=== PATIENT | female | born 1970 | race Caucasian/White ===

== ENCOUNTER → 2017-11-14 | Outpatient (CLI) | payer OTHER ==
--- NOTE | 2017-11-19 12:26 | MAM ---
EXAM DESCRIPTION: 3D Screening BILATERAL : Digital Mammography. CLINICAL HISTORY: 47 years Female SCREENING . No complaints. Sister with breast cancer. Premenopausal. Currently on HRT. COMPARISON: 2-D digital screening bilateral study 08/16/2014. No prior reports available. TECHNIQUE: Bilateral CC and MLO projection full-field images, 3-D tomosynthesis digital mammographic technique. Also bilateral synthesized CC/ MLO full-field images. CAD not utilized. FINDINGS: The breast parenchymal density pattern is: Scattered areas of fibroglandular density. No skin thickening or nipple retraction . Bilateral axillary lymph nodes. Lymph nodes right axillary tail. No focal, stellate mass or density, focal asymmetry , and no suspicious microcalcifications bilaterally. Stable mammograms compared to prior study, taking into account differences in mammographic technique IMPRESSION: BI-RADS CATEGORY: 2 - BENIGN FINDINGS. FOLLOW UP: Routine digital bilateral screening, one year interval from October 2017. Written communication explaining the IMPRESSION and follow-up, will be mailed to the patient and referring health care provider. According to the [employer], yearly mammograms are recommended starting at age 40 and continuing as long as a woman is in good health. Any breast change noted on a breast self-exam should be reported promptly to the patient's healthcare provider. Breast MRI is recommended for women with an approximately 20-25% or greater lifetime risk of breast cancer, including women with a strong family history of breast or ovarian cancer and women who have been treated for Hodgkin's disease. A negative mammographic report should not delay tissue diagnosis in patients with significant clinical history or physical findings. Extremely dense breast tissue limits the sensitivity of digital mammography. Electronically signed by: Reji Ko MD 11/19/2017 12:[address] [facility]
== END ==
LOC: MAMMO 16:38
PROVIDERS: ATTEND Obstetrics & Gynecology
DX: Z12.31 Encounter for screening mammogram for malignant neoplasm of breast (principal)

== ENCOUNTER → 2018-01-01 | Outpatient (CLI) | payer OTHER | END | disposition home or self-care (01) | LOC: LAB.O 14:13 | PROVIDERS: ATTEND Obstetrics & Gynecology | DX: N87.1 Moderate cervical dysplasia (principal) ==

== ENCOUNTER 2018-10-03 16:53 | Emergency (ER) | payer OTHER ==
[2018-10-03] MEDS ORDERED: KETOROLAC TROMETHAMINE INJ 60 MG/2 ML VIAL IM ONE (17:42)
[2018-10-03 17:43] VITALS: TEMP 97.8
[2018-10-03] MEDS ORDERED: ORPHENADRINE CITRATE 30 MG/ML AMP IM ONE (17:43)
[2018-10-03] MEDS ORDERED: traMADol 37.5MG/APAP 325MG 1 EA TAB PO ONE (17:43)
--- NOTE | 2018-10-03 17:48 | ED.PDOC ---
History of Present Illness - General Source: patient Exam Limitations: no limitations - History of Present Illness Initial Comments: PT PRESENTS WITH COMPLAINTS OF LEFT HIP PAIN AND LOW BACK PAIN AFTER SLIPPING AND FALLING DOWN [employer] [facility] 2 DAYS AGO. PT HAS BEEN ABLE TO AMBULATE BUT HAS PAIN IN BACK AND PAIN WHEN SITTING ON L BUTTOCKS. Severity: moderate Improving Factors: immobilization, rest Worsening Factors: movement Associated Symptoms: denies symptoms <Yonatan Ruano - Last Filed: 10/03/18 17:46> <Elisabeth Vargas - Last Filed: 10/03/18 19:22> - General Chief Complaint: Trauma Stated Complaint: fall Time Seen by Provider: 10/03/18 17:37 - History of Present Illness Allergies/Adverse Reactions: Allergies NO KNOWN ALLERGY Allergy (Verified 10/03/18 17:42) Home Medications: Ambulatory Orders Aripiprazole [Abilify] 5 mg PO DAILY 06/09/16 Clonazepam 1 mg PO BEDTIME 06/09/16 Esomeprazole Magnesium [Nexium] 20 mg PO DAILY 06/09/16 Estradiol 0.5 mg PO DAILY 06/09/16 Fluoxetine HCl [Prozac] 40 mg PO DAILY 06/09/16 Metoprolol Succinate [Toprol XL] 50 mg PO DAILY 06/09/16 Rosuvastatin Calcium [Crestor] 10 mg PO DAILY 06/09/16 Zolpidem Tartrate [Ambien] 12.5 mg PO BEDTIME 06/09/16 Ondansetron HCl [Zofran] 4 mg PO Q4HR PRN #14 tab 09/25/16 Acetamin W/Cod #3 Tab [Tylenol w/CODEINE #3] 1 ea PO Q6HR PRN #40 tab 10/03/18 Methocarbamol [Robaxin] 750 mg PO Q8HR #30 tab 10/03/18 Review of Systems - Review of Systems Constitutional: Denies: chills, fever EENTM: Denies: nose congestion, throat pain Respiratory: Denies: cough, short of breath Cardiology: Denies: chest pain, palpitations, syncope Musculoskeletal: States: see HPI, back pain, joint pain, muscle pain Skin: States: change in color, other - BRUISING TO L BUTTOCKS Endocrine: States: no symptoms reported <Yonatan Ruano - Last Filed: 10/03/18 17:46> Past Medical History (General) - Patient Medical History Hx Seizures: No Hx Stroke: No Hx Dementia: No Hx Asthma: No Hx of COPD: No Hx Cardiac Disorders: No - hyperlipidemia Hx Congestive Heart Failure: No Hx Pacemaker: No Hx Hypertension: Yes Hx Thyroid Disease: Yes Hx Diabetes: No Hx Gastroesophageal Reflux: No Hx Renal Disease: No Hx Cancer: No Hx of HIV: No Hx Hepatitis C: No Hx MRSA: No Surgical History: appendectomy, cholecystectomy, Hysterectomy - Vaccination History Hx Tetanus, Diphtheria Vaccination: Yes Hx Influenza Vaccination: Yes Hx Pneumococcal Vaccination: No - Social History Hx Tobacco Use: No Hx Chewing Tobacco Use: No Hx Alcohol Use: No Hx Substance Use: No Hx Substance Use Treatment: No Hx Depression: No Hx Physical Abuse: No Hx Emotional Abuse: No Hx Suspected Abuse: No - Female History Patient : No <Yonatan Ruano Andriy - Last Filed: 10/03/18 17:46> Family Medical History - Family History Mother Family History: No Known <Yonatan Ruano Andriy - Last Filed: 10/03/18 17:46> Physical Exam - Physical Exam General Appearance: Alert, Obese, Well Groomed, Well Hydrated, Other - APPEARS UNCOMFORTABLE Ears, Nose, Throat: hearing grossly normal Neck: non-tender, full range of motion Back Exam: vertebral tenderness - LUMBAR Extremity: swelling, other - EXTENSIVE ECCHYMOSIS AND TTP OF THE L BUTTOCK Neurologic: alert, normal mood/affect, oriented x 3 Skin Exam: normal color, warm/dry <Yonatan Ruano Andriy - Last Filed: 10/03/18 17:46> Progress - Results/Orders Results/Orders: PT WAS EXAMINED X RAYS WERE REVIEWED NO FRACTURE DISLOCATION PT IS AMBULATORY PAIN MUCH DECREASED AFTER THE MEDICATIONS WILL DC HOME TO BE FOLLOWED BY HER PHYSCIAN <Elisabeth Vargas - Last Filed: 10/03/18 19:22> Departure <Yonatan Ruano - Last Filed: 10/03/18 17:46> - Departure Time of Disposition: 19:17 Activity: increase activity as tolerated <Elisabeth Vargas - Last Filed: 10/03/18 19:22> - Departure Clinical Impression: Low back pain Disposition: Discharge to Home or Self Care Condition: Good Departure Forms: ED Discharge - Pt. Copy, Patient Portal Self Enrollment Instructions: DARELL for Trauma Referrals: Jan Miles MD [Primary Care Provider] - 1-2 Weeks Prescriptions: Acetamin W/Cod #3 Tab [Tylenol w/CODEINE #3] 1 ea PO Q6HR PRN #40 tab PRN Reason: Mild To Moderate Pain Methocarbamol [Robaxin] 750 mg PO Q8HR #30 tab Home Medications: Ambulatory Orders Aripiprazole [Abilify] 5 mg PO DAILY 06/09/16 Clonazepam 1 mg PO BEDTIME 06/09/16 Esomeprazole Magnesium [Nexium] 20 mg PO DAILY 06/09/16 Estradiol 0.5 mg PO DAILY 06/09/16 Fluoxetine HCl [Prozac] 40 mg PO DAILY 06/09/16 Metoprolol Succinate [Toprol XL] 50 mg PO DAILY 06/09/16 Rosuvastatin Calcium [Crestor] 10 mg PO DAILY 06/09/16 Zolpidem Tartrate [Ambien] 12.5 mg PO BEDTIME 06/09/16 Ondansetron HCl [Zofran] 4 mg PO Q4HR PRN #14 tab 09/25/16 Acetamin W/Cod #3 Tab [Tylenol w/CODEINE #3] 1 ea PO Q6HR PRN #40 tab 10/03/18 Methocarbamol [Robaxin] 750 mg PO Q8HR #30 tab 10/03/18
--- NOTE | 2018-10-03 19:06 | RAD ---
EXAM DESCRIPTION: Pelvis CLINICAL HISTORY: 47 years Female BACK PAIN L HIP PAIN S/P FALL COMPARISON: None TECHNIQUE: AP view of the pelvis is obtained. FINDINGS: OSSEOUS: There is no evidence of acute fracture or osteolytic/osteoblastic lesions. There is no evidence of subluxation or dislocation. The joint spaces are preserved. There is minimal osteitis pubis. There is no evidence of marginal erosive changes to suggest an inflammatory arthritis. SOFT TISSUE: There is no significant soft tissue swelling or mass. No evidence of significant soft tissue calcifications. Suspect the linear densities in the pelvis may be tiny contiguous postoperative clips. No radiopaque foreign bodies. No evidence of hip joint effusions. IMPRESSION: No acute osseous abnormalities. Remainder of findings as described above. Electronically signed by: Angelina Diaz MD 10/03/2018 7:05 PM [facility]
--- NOTE | 2018-10-03 19:07 | RAD ---
EXAM DESCRIPTION: Lumbar Spine 3 Views CLINICAL HISTORY: 47 years Female LOW BACK PAIN S/P FALL COMPARISON: None TECHNIQUE: AP and lateral views of the lumbar spine as well as a coned down lateral view of the lumbosacral junction are obtained. FINDINGS: OSSEOUS: There are no discernible acute fractures or osteolytic/blastic lesions. There is no evidence of dislocation or subluxation. Vertebral body heights are maintained. Disc spaces are maintained. The alignment is normal The visualized SI joints are preserved and sacral foraminal lines are intact. SOFT TISSUES The paraspinous soft tissues are unremarkable. IMPRESSION: No acute osseous abnormalities. Electronically signed by: Angelina Diaz MD 10/03/2018 7:06 PM [facility]
[2018-10-03 19:30] VITALS: BP 155/94; O2SAT 98
== END 2018-10-03 19:30 | disposition home or self-care (01) ==
LOC: ER 16:53
DX: M54.5 Low back pain (principal); M25.552 Pain in left hip; E07.9 Disorder of thyroid, unspecified; E78.5 Hyperlipidemia, unspecified; I10 Essential (primary) hypertension; Z79.899 Other long term (current) drug therapy
CPT/HCPCS: 72100; 72170; J1885; J2360

== ENCOUNTER 2018-11-14 06:11 | Emergency (ER) | payer OTHER ==
[2018-11-14 06:25] VITALS: TEMP 97.8
[2018-11-14] MEDS ORDERED: HYDROcodone 7.5MG/APAP 325MG 1 EA TAB PO ONE (06:25)
[2018-11-14] MEDS ORDERED: predniSONE 20 MG TAB PO ONE (06:28)
--- NOTE | 2018-11-14 06:41 | ED.PDOC ---
History of Present Illness - General Chief Complaint: Abdominal Pain Stated Complaint: shap pain to left lateral side with cough Time Seen by Provider: 11/14/18 06:13 Source: patient Exam Limitations: no limitations - History of Present Illness Initial Comments: The patient is a 48-year-old female presented to emergency room secondary to new onset left lower thorax pain. The patient has had 3 weeks of cough that is most consistent with bronchitis tracheitis and laryngitis. She underwent a weeklong course of steroids and an extended course of azithromycin. She ended the s teroids about a week ago and the azithromycin yesterday. She has been doing her breathing treatments as instructed and she also takes Zyrtec daily. No fevers. No newly productive sputum. This morning about 3 hours ago she coughed very hard and sustained very severe pain to the left lower thorax laterally. She does have a history of asthma. Pulmonary exam shows splinting towards the left lower lung field. No wheezes. Good air movement. The patient is obviously hoarse. She is coughing at least once a minute. She does have some mild nasal drainage. Posterior oropharynx shows very mild erythema. Timing/Duration: other Severity: moderate Improving Factors: nothing Worsening Factors: movement Associated Symptoms: cough Allergies/Adverse Reactions: Allergies NO KNOWN ALLERGY Allergy (Verified 10/03/18 17:42) Home Medications: Ambulatory Orders Aripiprazole [Abilify] 5 mg PO DAILY 06/09/16 Clonazepam 1 mg PO BEDTIME 06/09/16 Esomeprazole Magnesium [Nexium] 20 mg PO DAILY 06/09/16 Estradiol 0.5 mg PO DAILY 06/09/16 Metoprolol Succinate [Toprol XL] 50 mg PO DAILY 06/09/16 Rosuvastatin Calcium [Crestor] 10 mg PO DAILY 06/09/16 Zolpidem Tartrate [Ambien] 12.5 mg PO BEDTIME 06/09/16 Amoxicillin & Pot Clavulanate [Augmentin Tab] 875 mg PO BID #14 tab 11/14/18 Tramadol HCl 50 mg PO Q8HR PRN #20 tab 11/14/18 predniSONE [Prednisone] 20 mg PO DAILY #5 tab 11/14/18 Review of Systems - Review of Systems Constitutional: States: malaise EENTM: States: nose congestion Respiratory: States: cough Cardiology: States: chest pain - left lateral lower chest wall pain with cough, palpation and movement. No crepitus. Gastrointestinal/Abdominal: States: no symptoms reported Genitourinary: States: no symptoms reported Musculoskeletal: States: see HPI Skin: States: no symptoms reported Neurological: States: no symptoms reported Endocrine: States: no symptoms reported All other Systems: No Change from Baseline Past Medical History (General) - Patient Medical History Hx Seizures: No Hx Stroke: No Hx Dementia: No Hx Asthma: No Hx of COPD: No Hx Cardiac Disorders: No - hyperlipidemia Hx Congestive Heart Failure: No Hx Pacemaker: No Hx Hypertension: Yes Hx Thyroid Disease: Yes Hx Diabetes: No Hx Gastroesophageal Reflux: No Hx Renal Disease: No Hx Cancer: No Hx of HIV: No Hx Hepatitis C: No Hx MRSA: No Surgical History: no surgical history - Vaccination History Hx Tetanus, Diphtheria Vaccination: Yes Hx Influenza Vaccination: Yes Hx Pneumococcal Vaccination: No - Social History Hx Tobacco Use: No Hx Chewing Tobacco Use: No Hx Alcohol Use: No Hx Substance Use: No Hx Substance Use Treatment: No Hx Depression: No Hx Physical Abuse: No Hx Emotional Abuse: No Hx Suspected Abuse: No - Female History Patient : No Family Medical History - Family History Mother Family History: No Known Physical Exam - Physical Exam General Appearance: Alert, Comfortable, No apparent distress Eye Exam: bilateral normal Ears, Nose, Throat: hearing grossly normal, nasal congestion Neck: full range of motion, supple Respiratory: lungs clear, normal breath sounds, no respiratory distress, no accessory muscle use, other - left lateral lower chest wall tender to palpation. No crepitus. No obvious bruising. Cardiovascular/Chest: normal peripheral pulses, regular rate, rhythm, no edema Peripheral Pulses: radial,right: 2+, radial,left: 2+, dorsalis pedis,right: 2+, dorsalis pedis,left: 2+ Gastrointestinal/Abdominal: non tender, soft Rectal Exam: deferred Back Exam: no CVA tenderness, no vertebral tenderness Extremity: non-tender, normal inspection, no pedal edema, normal capillary refill Neurologic: yield loss inspector II-XII nml as tested, alert, normal mood/affect, oriented x 3 Skin Exam: normal color Comments: Vital Signs - 24 hr 11/14/18 06:20 Temperature 97.8 F Pulse Rate [ 90 left] Respiratory 18 Rate Blood Pressure 137/84 [left] O2 Sat by Pulse 97 Oximetry Progress - Progress Progress: 11/14/18 06:44 the patient is a 48-year-old female presenting to the emergency room secondary to the acute onset of left lateral lower chest wall pain that started with coughing this morning. Coughing has been present along with laryngitis and a mild bronchitis for the last 3 weeks according to the patient. She is receiving a dose of oral prednisone at a dose of hydrocodone both as a cough suppressant and pain relief for the chest wall. No difficulties with oxygenation. She has apparently already completed a course of azithromycin. chest x-ray shows no overt evidence of any pneumothorax or displaced rib fracture. No evidence of any significant focal infiltrate. The patient is going to be written for Augmentin for the next week and tramadol for as needed use for the rib pain. She will also be written for another 5 day course of oral prednisone. She needs to follow back up with her primary care doctor early next week. ER warnings were given. 11/14/18 06:58 Departure - Departure Clinical Impression: Laryngitis Chest wall muscle strain Qualifiers: Encounter type: initial encounter Qualified Code(s): S29.011A - Strain of muscle and tendon of front wall of thorax, initial encounter Disposition: Discharge to Home or Self Care Condition: Fair Departure Forms: ED Discharge - Pt. Copy, Patient Portal Self Enrollment Instructions: Laryngitis (DC) Diet: regular diet Activity: increase activity as tolerated Referrals: Jan Miles MD [Primary Care Provider] - 1-2 Weeks Prescriptions: Tramadol HCl 50 mg PO Q8HR PRN #20 tab PRN Reason: Moderate To Severe Pain Amoxicillin & Pot Clavulanate [Augmentin Tab] 875 mg PO BID #14 tab predniSONE [Prednisone] 20 mg PO DAILY #5 tab Home Medications: Ambulatory Orders Aripiprazole [Abilify] 5 mg PO DAILY 06/09/16 Clonazepam 1 mg PO BEDTIME 06/09/16 Esomeprazole Magnesium [Nexium] 20 mg PO DAILY 06/09/16 Estradiol 0.5 mg PO DAILY 06/09/16 Metoprolol Succinate [Toprol XL] 50 mg PO DAILY 06/09/16 Rosuvastatin Calcium [Crestor] 10 mg PO DAILY 06/09/16 Zolpidem Tartrate [Ambien] 12.5 mg PO BEDTIME 06/09/16 Amoxicillin & Pot Clavulanate [Augmentin Tab] 875 mg PO BID #14 tab 02/15/19 Tramadol HCl 50 mg PO Q8HR PRN #20 tab 11/14/18 predniSONE [Prednisone] 20 mg PO DAILY #5 tab 11/14/18 Additional Instructions: the patient is a 48-year-old female presenting to the emergency room secondary to the acute onset of left lateral lower chest wall pain that started with coughing this morning. Coughing has been present along with laryngitis and a mild bronchitis for the last 3 weeks according to the patient. She is receiving a dose of oral prednisone at a dose of hydrocodone both as a cough suppressant and pain relief for the chest wall. No difficulties with oxygenation. She has apparently already completed a course of azithromycin. chest x-ray shows no overt evidence of any pneumothorax or displaced rib fracture. No evidence of any significant focal infiltrate. The patient is going to be written for Augmentin for the next week and tramadol for as needed use for the rib pain. She will also be written for another 5 day course of oral prednisone. She needs to follow back up with her primary care doctor early next week. ER warnings were given.
[2018-11-14 07:06] VITALS: BP 129/86; O2SAT 99
--- NOTE | 2018-11-14 07:11 | RAD ---
EXAM: Two view chest. INDICATION: Cough. COMPARISON: Chest x-ray: None. FINDINGS: Cardiac silhouette: Unremarkable. Radha: Unremarkable. Lobar consolidation: None. Pleural effusion: None. Pneumothorax: None. Other: None. Bones: Unremarkable. Other: None. IMPRESSION: 1. No acute cardiopulmonary process. Electronically signed by: Surya Rm MD 11/14/2018 7:09 AM [facility] Workstation: [id number]
== END 2018-11-14 07:06 | disposition home or self-care (01) ==
LOC: ER 06:11
DX: S29.011A Strain of muscle and tendon of front wall of thorax, initial encounter (principal); J04.0 Acute laryngitis; R05 Cough; E78.5 Hyperlipidemia, unspecified; I10 Essential (primary) hypertension; E07.9 Disorder of thyroid, unspecified; X58.XXXA Exposure to other specified factors, initial encounter; Y92.9 Unspecified place or not applicable; Z79.899 Other long term (current) drug therapy
CPT/HCPCS: 71046; J7512

== ENCOUNTER → 2019-07-02 | Outpatient (CLI) | payer OTHER | LOC: GMA MATASK 16:39 | PROVIDERS: ATTEND Family Medicine | DX: E03.9 Hypothyroidism, unspecified (principal); I10 Essential (primary) hypertension ==

== ENCOUNTER → 2019-07-03 | Outpatient (CLI) | payer OTHER | LOC: GMA MATASK 12:21 | PROVIDERS: ATTEND Family Medicine | DX: I10 Essential (primary) hypertension (principal); E03.9 Hypothyroidism, unspecified ==

== ENCOUNTER → 2020-02-16 | Outpatient (CLI) | payer BC | LOC: GMA MATASK 11:41 | PROVIDERS: ATTEND Family Medicine | DX: Z00.00 Encounter for general adult medical examination without abnormal findings (principal); E03.9 Hypothyroidism, unspecified ==

== ENCOUNTER → 2020-03-22 | Outpatient (CLI) | payer BC ==
--- NOTE | 2020-03-23 17:41 | MAM ---
History: Well woman exam. Date of exam: 03/22/2020 Services provided: Bilateral full field digital screening mammography with angelic. CAD, the images were reviewed with R2 computer aided detection. FINDINGS: Glandular tissue contains scattered areas of fibroglandular densities. Comparison with 2013 and 2017 exams. No dominant mass, distortion or clustered microcalcifications. IMPRESSION: Benign exam Recommendation: Annual mammography BIRAD CATEGORY: 2 BENIGN FINDINGS NEGATIVE Exam findings and recommendations will be sent to the patient. Electronically signed by: Phuong Sutton MD 03/23/2020 5:39 PM [facility] Workstation: [id number]
== END ==
LOC: GMAJS 14:11
PROVIDERS: ATTEND Physician Assistant
DX: Z12.31 Encounter for screening mammogram for malignant neoplasm of breast (principal); M79.10 Myalgia, unspecified site; R06.00 Dyspnea, unspecified; J06.9 Acute upper respiratory infection, unspecified

== ENCOUNTER → 2020-10-27 | Outpatient (CLI) | payer BC | LOC: GMA MATASK 10:35 | PROVIDERS: ATTEND Family Medicine | DX: E03.9 Hypothyroidism, unspecified (principal); I10 Essential (primary) hypertension ==